=== PATIENT | female | born 1965 ===

== ENCOUNTER 2024-02-29 07:02 | Day surgery (SDC) | payer OTHER ==
[2024-02-27 09:03] LABS: PH,URINE 5.5 (5.0-8.0); URINE APPEARANCE Clear; URINE BILIRRUBIN Negative (NEGATIVE); URINE BLOOD Small; URINE COLOR Yellow; URINE GLUCOSE Negative (NEGATIVE); URINE KETONE Negative (NEGATIVE); URINE LEUKOCYTE Negative; URINE NITRATE Negative; URINE PROTEIN Negative (NEGATIVE); URINE UROBILINOGEN 0.2 E.U./dl
[2024-02-27 09:05] LABS: HEMATOCRIT 41.7 % (36.0-45.00); HEMOGLOBIN 14.4 g/dL (12.0-15.00); MEAN CELL VOLUME 90.2 fL (80.00-100.00); MEAN CORPUSCULAR HEMOGLOBIN 31.1 pg (27.00-32.0); MEAN CORPUSCULAR HGB CONC 34.5 g/dl (32.0-36.0); PLATELET COUNT 318 K/uL (150-450); RED BLOOD COUNT 4.63 M/uL (4.00-6.00); URINE BACTERIA 18.8 uL (0.0-1933); URINE EPITHELIAL CELLS 2.9 uL (0.0-38.8); URINE RBC 24.4 uL (0.0-20.8)
[2024-02-27 09:18] LABS: URINE CAST 0.15 uL (0.0-1.40); URINE WBC 1.2 uL (0.0-23.2)
[2024-02-27 09:28] LABS: PARTIAL THROMBOPLASTIN TIME 31.2 SECONDS (22.0-34.0); PROTHROMBIN TIME 10.9 SECONDS (9.0-11.5)
[2024-02-27 09:38] LABS: ALBUMIN 3.9 gm/dL (3.4-5.0); BILIRUBIN TOTAL 0.49 mg/dL (0.3-1.2); CALCIUM 9.3 mg/dL (8.5-10.1); CREATININE SERUM 0.58 mg/dL (0.55-1.02); GFR 106.4; GLOBULINA 3.2 G/DL (2.4-3.5); POTASSIUM 4.24 mEq/L (3.5-5.1); TOTAL PROTEIN 7.1 gm/dL (6.4-8.2)
[~2024-02-29 07:02] MED LIST: ATACAND HCT 161 EACH; DICY20TA
[2024-02-29] MEDS ORDERED: CEFAZOLIN SODIUM 1,000 MG VIAL ONE (12:04)
[2024-02-29] MEDS ORDERED: SUGAMMADEX SODIUM 200 MG/2 ML VIAL IV ONE (13:35)
== END 2024-02-29 17:55 | disposition home or self-care (01) ==
LOC: CIR.AMB 07:02
PROVIDERS: ATTEND Surgery
DX: K81.1 Chronic cholecystitis (principal); I10 Essential (primary) hypertension; Z91.013 Allergy to seafood